=== PATIENT | female | born 1995 | race Caucasian/White ===

== ENCOUNTER 2017-05-18 03:47 | Emergency (ER) | payer SELFPAY ==
[~2017-05-18] VITALS: Ht 165.1 cm; Wt 43.5 kg
[2017-05-18 03:50] VITALS: Ht 165.1 cm; Wt 43.5 kg
--- NOTE | 2017-05-18 04:27 | ERD ---
ER Documentation Chief Complaint Date/Time DATE: 05/18/17 TIME: 04:21 Chief Complaint Chest pain and palpitations started yesterday HPI 21-year-old female presents to emergency department for complaints of chest pain and palpitations that started yesterday, patient described the pain as sharp pain, 4/10 scale, accompanied with palpitations. Patient has had this type of pain and symptoms before, accompanied with her anxiety attacks, history of panic attacks before. Patient has never been on medications for anxiety. Patient vomited once, and felt much better afterwards. Patient denies any other symptoms at this time. Patient denies any dyspnea on exertion or dyspnea on lying down. Patient denies any cough. Patient denies any fever or chills. ROS All systems reviewed and are negative except as per history of present illness. Medications Home Meds Reported Medications [none] Unknown Strength No Conflict Check 05/18/17 Allergies Allergies: Coded Allergies: Penicillins (Verified Allergy, Unknown, hives, 05/18/17) PMhx/Soc Medical and Surgical Hx: pt denies Medical Hx, pt denies Surgical Hx Hx Psychiatric Problems: Yes (panic attacks) Hx Alcohol Use: Yes (rarely) Hx Substance Use: No Hx Tobacco Use: No Smoking Status: Never smoker FmHx Family History: No coronary disease, No diabetes, No other Physical Exam Vitals Vital Signs Date Time Temp Pulse Resp B/P Pulse Ox O2 Delivery O2 Flow Rate FiO2 05/18/17 04:38 92 05/18/17 03:50 99.1 117 18 129/70 100 Physical Exam GENERAL: The patient is well developed and appropriate for usual state of health, in no apparent distress. CHEST: Clear to auscultation bilaterally. There are no rales, wheezes or rhonchi. HEART tachycardic rate with regular rhythm. No murmurs, clicks, rubs or gallops. No S3 or S4. ABDOMEN: Soft, nontender and nondistended. Good bowel sounds. No rebound or guarding. No gross peritonitis. No gross organomegaly or masses. No Marie sign or McBurney point tenderness. BACK: No midline or flank tenderness. EXTREMITIES: Equal pulses bilaterally. There is no peripheral clubbing, cyanosis or edema. No focal swelling or erythema. Full range of motion. Grossly neurovascularly intact. NEURO: Alert and oriented. Cranial nerves 2-12 intact. Motor strength in all 4 extremities with 5/5 strength. Sensation grossly intact. Normal speech and gait. SKIN: There is no apparent rash or petechia. The skin is warm and dry. HEMATOLOGIC AND LYMPHATIC: There is no evidence of excessive bruising or lymphedema. No gross cervical, axillary, or inguinal lymphadenopathy. Results 24 hrs Current Medications Medications (Trade) Dose Ordered Sig/Mary Route PRN Reason Start Time Stop Time Status Last Admin Dose Admin Alprazolam (Xanax) 1 mg ONCE ONCE PO 05/18/17 04:30 05/18/17 04:31 DC 05/18/17 04:26 EKG was done, read by me and is normal sinus rhythm at a rate of 92, normal axis , there is no ST changes or changes in the EKG that indicates any cardiac emergencies at this time. Patient's EKG was also reviewed by Dr. Orozco. Impression: no acute findings on EKG PROCEDURE: Chest. CLINICAL INDICATION: Chest pain. TECHNIQUE: Single frontal view of the chest was obtained. COMPARISON: None. FINDINGS: The cardiac silhouette is within normal limits. The aortic arch is unremarkable. There is no focal consolidation, vascular congestion or pleural effusion. There is no pneumothorax. IMPRESSION: No evidence for active cardiopulmonary disease. .Wilder Longo MD, MD Date Time Electronically viewed and signed by .Wilder Longo MD, on 05/18/2017 04:47 .T/ CC: BONG HUGHES NP Xanax was given here in emergency department, verbalizing much better afterwards. Procedures/MDM Medical Decision Making: Patient's chest pain palpitations nonspecific at this time, likely anxiety related. There is low suspicion for cardiopulmonary emergencies at this time. Patient has low risk factors. EKG is normal, there is no changes in the EKG that indicates cardiac emergencies. Chest X-ray does not show cardiopulmonary emergencies at this time. There is low suspicion for aortic aneurysm, myocardial infarction, pneumothorax, pleural effusion, pulmonary embolism, or any other cardiopulmonary emergencies at this time. Patient was given for Xanax, is advised to follow-up with primary care doctor in 1-2 days for reevaluation of symptoms, possibly see client technical specialist. Patient is advised to return to emergency department for any worsening symptoms. Dispostion: Home. Stable Departure Diagnosis: Primary Impression: Atypical chest pain Additional Impression: Palpitations Condition: Stable Patient Instructions: Chest Pain, Uncertain Cause, Palpitations BONG HUGHES NP May 18, 2017 04:27
[2017-05-18] MEDS ORDERED: ALPRAZOLAM 1 MG TAB PO ONE (04:30)
[2017-05-18 04:38] VITALS: PULSE 92
--- NOTE | 2017-05-18 04:48 | RADRPT ---
PROCEDURE: Chest. CLINICAL INDICATION: Chest pain. TECHNIQUE: Single frontal view of the chest was obtained. COMPARISON: None. FINDINGS: The cardiac silhouette is within normal limits. The aortic arch is unremarkable. There is no focal consolidation, vascular congestion or pleural effusion. There is no pneumothorax. IMPRESSION: No evidence for active cardiopulmonary disease. .Wilder Longo MD, MD Date Time Electronically viewed and signed by .Wilder Longo MD, on 05/18/2017 04:47 .T/
[2017-05-18] MEDS ORDERED: ALPR1TAB2 PO (05:05)
== END 2017-05-18 05:15 | disposition home or self-care (01) ==
LOC: FTE 03:47
DX: R07.89 Other chest pain (principal); R00.2 Palpitations
CPT/HCPCS: 71010; 93005

== ENCOUNTER 2017-10-11 13:13 | Emergency (ER) | payer OTHER ==
[~2017-10-11] VITALS: Ht 157.5 cm; Wt 44.5 kg
[~2017-10-11 13:13] MED LIST: ALPR1TAB2 PO
[2017-10-11 13:15] VITALS: Ht 157.5 cm; Wt 44.5 kg
--- NOTE | 2017-10-11 14:09 | ERD ---
ER Documentation Chief Complaint Chief Complaint Complains of bloody diarrhea x 2 days HPI 21-year-old female, previously healthy, presents to the emergency department complaining of 3 days with sudden onset of diarrhea, described as watery, with some mucus and blood 3 during the last 24 hours, associated with mild, intermittent cramping abdominal pain. Possible suspicious food, refers subjective fever last night, no chills, no urinary symptoms. No treatment attempted at this time. ROS SYSTEMIC symptoms: no fever, chills, no night sweats, no weight loss EYE symptoms: No blurred vision, no eye discharge OTOLARYNGEAL symptoms: No hearing loss. No ear pain, no sore throat CARDIOVASCULAR symptoms: No chest pain or discomfort, no palpitations. PULMONARY symptoms: No dyspnea, no cough, no wheezing. GASTROINTESTINAL symptoms: No abdominal pain, no nausea, no vomiting, + diarrhea MUSCULOSKELETAL symptoms: No arthralgias, no muscle aches. NEUROLOGY symptoms: No confusion, no syncope, no numbness or tingling. SKIN: No rashes Medications Home Meds Active Scripts Metoclopramide* (Reglan*) 10 Mg Tablet, 10 MG PO BID Y for NAUSEA for 5 Days, # 10 TAB Prov:JAKUB CARVALHO MD 10/11/17 Ciprofloxacin Hcl* (Ciprofloxacin Hcl*) 250 Mg Tablet, 250 MG PO BID for 3 Days , #6 TAB Prov:JAKUB CARVALHO MD 10/11/17 Alprazolam* (Xanax*) 1 Mg Tab, 1 MG PO Q8H Y for ANXIETY, #15 TAB Prov:BONG HUGHES NP 05/18/17 Reported Medications [none] Unknown Strength No Conflict Check 05/18/17 Allergies Allergies: Coded Allergies: Penicillins (Verified Allergy, Unknown, hives, 05/18/17) PMhx/Soc Hx Psychiatric Problems: Yes (panic attacks) Hx Alcohol Use: Yes (rarely) Hx Substance Use: No Hx Tobacco Use: No Physical Exam Vitals Vital Signs Date Time Temp Pulse Resp B/P Pulse Ox O2 Delivery O2 Flow Rate FiO2 10/11/17 13:15 98.8 96 20 123/70 100 Physical Exam Patient is in no acute distress, vital signs stable. Alert and fully oriented. EYES: PERRLA, EOMI, Sclera and conjunctiva appear normal. EARS: Canals clear, tympanic membranes WNL THROAT: Normal oropharynx. NECK: Supple, No lymphadenopathy. Full ROM without pain or tenderness. HEART: RRR, no rubs, murmurs, clicks or gallops. LUNGS: Clear to auscultation. ABDOMEN: Soft, non-tender without masses or hepatosplenomegaly. EXTREMITIES: No edema bilaterally. BACK: Full ROM, no deformity, normal back exam NEURO: Cranial nerves grossly intact, no motor or sensory deficit Procedures/MDM 21-year-old female, previously healthy, presents to the emergency department for evaluation and management of bloody diarrhea for 2 days associated with subjective fever. Vital signs stable, Physical exam unremarkable, abdomen benign. Differential diagnosis include but not limited to: colitis, gastroenteritis, irritable bowel syndrome, inflammatory bowel syndrome, malabsorption syndrome, food intolerance, medication side effect, low suspicion for acute abdomen, appendicitis, pancreatitis, diverticulitis, bowel obstruction. Physical examination and clinical presentation consistent most likely with infectious diarrhea due to the fever and blood and mucus. During the ED course the patient remained stable, no new complaints. Results and clinical impression discussed with patient who agrees with management. The patient is stable to be treated outpatient and will be discharged home with a Rx for ciprofloxacin, ranitidine and acetaminophen, some side effects of prescribed medications (headache, rash, nausea, vomiting, diarrhea, drowsiness, habituation, bleeding, hypertension, interactions with other medications) were reviewed. The patient was instructed to follow up with the primary care provider in the next 48h. If symptoms persist, worsen or new symptoms develop, then patient should return to the ED immediately. Instructions explained and given directly by me to the patient in Greek with acknowledgment and demonstrated understanding. Disclaimer: Inadvertent spelling and grammatical errors are likely due to EHR/ dictation software use and do not reflect on the overall quality of patient care. Also, please note that the electronic time recorded on this note does not necessarily reflect the actual time of the patient encounter. Departure Diagnosis: Primary Impression: Infectious gastroenteritis Condition: Stable Additional Instructions: Call your primary care doctor TOMORROW for an appointment during the next 1-2 days. See the doctor sooner or return here if your condition worsens before your appointment time. Thank you very much for allowing us to participate in your care. Your health and safety is our top priority at [facility]. Have prescriptions filled and follow precisely the directions on the label. Follow-up with primary care provider during the next 4 days and bring all the information and medications prescribed. If illness has not improved in 2 days, then make an appointment with primary care provider. If the provider is unavailable, return to the Emergency Department immediately. JAKUB CARVALHO MD Oct 11, 2017 14:09
[2017-10-11] MEDS ORDERED: CIPR-193 PO (14:26)
[2017-10-11] MEDS ORDERED: METO10TA92 PO (14:26)
== END 2017-10-11 14:48 | disposition home or self-care (01) ==
LOC: FTE 13:13
DX: A09 Infectious gastroenteritis and colitis, unspecified (principal)
CPT/HCPCS: 99284

== ENCOUNTER 2018-08-10 02:40 | Emergency (ER) | END 2018-08-10 05:28 | disposition home or self-care (01) ==